=== PATIENT | female | born 1975 | race Caucasian/White ===

== ENCOUNTER 2019-02-14 09:31 | Outpatient (CLI) | payer OTHER, SELFPAY ==
--- NOTE | 2019-02-14 09:57 | USCV_ITS ---
Denise Clifton Age: 43 Gender: F : 1975 Exam Date: 02/14/2019 10:12 Ordering Phys: Justino Timmons MD ([email or web address]) Technologist: Ayde Harris [place]am [place] [facility] [place]: CONGENTIAL HEART VALVE ABN BP: / HR: 69 Rhythm: Sinus Technical Quality: Adequate MEASUREMENTS (Male / Female) Normal Values 2D ECHO LV Diastolic Diameter PLAX 5.5 cm 4.2 - 5.9 / 3.9 - 5.3 cm LV Systolic Diameter PLAX 4.1 cm LV Chamber Size 4.0 cm IVS Diastolic Thickness 1.3 cm 0.6 - 1.0 / 0.6 - 0.9 cm IVS Systolic Thickness 1.7 cm LVPW Diastolic Thickness 1.4 cm 0.6 - 1.0 / 0.6 - 0.9 cm LVPW Systolic Thickness 1.9 cm RV Chamber Size 2.8 cm LVOT Diameter 2.0 cm LV Ejection Fraction 2D Teich 50.3 % LV Ejection Fraction MOD 2C 45.7 % LV Ejection Fraction 2C AL 46.0 % LA Diameter 4.6 cm LA Width 2.8 cm LA Height 4.4 cm RA Width 2.7 cm RA Height 4.0 cm M-MODE LV Diastolic Diameter MM 6.2 cm 4.2 - 5.9 / 3.9 - 5.3 cm LV Systolic Diameter MM 4.4 cm LV Ejection Fraction MM Teich 55.4 % IVS Diastolic Thickness MM 1.6 cm 0.6 - 1.0 / 0.6 - 0.9 cm IVS Systolic Thickness MM 1.6 cm LVPW Diastolic Thickness MM 1.3 cm 0.6 - 1.0 / 0.6 - 0.9 cm LVPW Systolic Thickness MM 1.5 cm RV Diastolic Diameter MM 2.2 cm Aortic Annulus Diameter 3.3 cm LA Ao Ratio MM 1.4 MV E Point Septal Separation 0.8 cm DOPPLER AV Peak Velocity 171.0 cm/s LVOT Peak Velocity 83.0 cm/s AV Area Cont Eq vti 2.3 cm squared AV Area Cont Eq pk 1.6 cm squared MV Area PHT 3.6 cm squared Mitral E to A Ratio 1.5 MV E' Velocity 81.0 cm/s TR Peak Velocity 233.9 cm/s TR Peak Gradient 21.9 mmHg TR Mean Velocity 154.0 cm/s TR Mean Gradient 11.0 mmHg TR Velocity Time Integral 52.0 cm TV Peak E Velocity 60.0 cm/s Right Atrial Pressure 5.0 mmHg Pulmonary Artery Systolic Pressu 26.9 mmHg PV Peak Velocity 63.0 cm/s RV Acceleration Time 0.2 s RV Ejection Time 0.3 s RV AcT/ET 0.6 FINDINGS Left Ventricle Normal left ventricular size and ejection n fraction 55%. No gross wall motion normalities noted. Apical lateral segment was found to have some relative hypokinesia Right Ventricle Possibly of normal size ejection fraction. Right Atrium The right atrium is normal in size. Left Atrium The left atrium is normal in size. Mitral Valve Thickened mitral valve. Aortic Valve Thickened aortic valve. Moderate aortic regurgitation with a pressure half-time of 469 ms Aortic leaflets could not be visualized well Tricuspid Valve No gross abnormalities noted Pulmonic Valve Not visualized well Pericardium Normal pericardium without effusion. Aorta Normal ascending aorta dimension. CONCLUSIONS Normal left ventricular size and ejection n fraction 55%. No gross wall motion abnormalities The left atrium is normal in size. Thickened mitral valve. Thickened aortic valve. Moderate aortic regurgitation with a pressure half-time of 469 ms There is no pericardial effusion. There are no intracardiac masses. Compared to his previous study from 07/23/2017, there may not be a significant change Dr Justino Timmons MD FACC (Electronically Signed) Final Date: 15 February 2019 15:24 S
== END 2019-02-14 09:32 | disposition home or self-care (01) ==
LOC: RAD 09:33
PROVIDERS: Family Provider Family Medicine; PCP Family Medicine; Visit Provider Internal Medicine Cardiovascular Disease
DX: Q24.8 Other specified congenital malformations of heart (principal); I08.0 Rheumatic disorders of both mitral and aortic valves
CPT/HCPCS: 93306

== ENCOUNTER → 2019-08-29 11:39 | Outpatient (BNVA) | payer OTHER, SELFPAY | PROVIDERS: Family Provider Family Medicine; PCP Family Medicine; Visit Provider Obstetrics & Gynecology | DX: Z12.4 Encounter for screening for malignant neoplasm of cervix (principal) | CPT/HCPCS: 88175 ==

== ENCOUNTER → 2020-05-14 11:43 | Outpatient (BNVA) | payer OTHER, SELFPAY | PROVIDERS: Family Provider Family Medicine; PCP Family Medicine Adult Medicine; Visit Provider Family Medicine Adult Medicine | DX: Z00.00 Encounter for general adult medical examination without abnormal findings (principal); E66.01 Morbid (severe) obesity due to excess calories; I35.1 Nonrheumatic aortic (valve) insufficiency; K76.0 Fatty (change of) liver, not elsewhere classified; E78.2 Mixed hyperlipidemia; I49.9 Cardiac arrhythmia, unspecified; E11.65 Type 2 diabetes mellitus with hyperglycemia; I10 Essential (primary) hypertension; F41.8 Other specified anxiety disorders; J45.909 Unspecified asthma, uncomplicated | CPT/HCPCS: 80053; 80061; 83036; 84443; 85025 ==

== ENCOUNTER → 2020-09-28 08:20 | Outpatient (BNVA) | payer OTHER, SELFPAY | PROVIDERS: Family Provider Family Medicine; PCP Family Medicine Adult Medicine; Visit Provider Family Medicine Adult Medicine | DX: E11.65 Type 2 diabetes mellitus with hyperglycemia (principal); E66.01 Morbid (severe) obesity due to excess calories; E78.2 Mixed hyperlipidemia; I35.1 Nonrheumatic aortic (valve) insufficiency; K76.0 Fatty (change of) liver, not elsewhere classified; Z00.00 Encounter for general adult medical examination without abnormal findings | CPT/HCPCS: 80053; 80061; 83036; 83721 ==

== ENCOUNTER → 2021-02-15 15:09 | Outpatient (BNVA) | payer OTHER, SELFPAY | PROVIDERS: Family Provider Family Medicine; PCP Family Medicine Adult Medicine; Visit Provider Family Medicine Adult Medicine | DX: E11.65 Type 2 diabetes mellitus with hyperglycemia (principal); I10 Essential (primary) hypertension | CPT/HCPCS: 80053; 83036 ==

== ENCOUNTER → 2021-06-13 15:18 | Outpatient (BNVA) | payer OTHER, SELFPAY | PROVIDERS: Family Provider Family Medicine; PCP Family Medicine Adult Medicine; Visit Provider Obstetrics & Gynecology | DX: N92.1 Excessive and frequent menstruation with irregular cycle (principal) | CPT/HCPCS: 83001; 84146; 84443; 84702; 85025 ==

== ENCOUNTER 2021-08-03 13:11 | Outpatient (CLI) | payer BC, SELFPAY ==
--- NOTE | 2021-08-03 13:45 | US_ITS ---
WS: [id number] TRANSVAGINAL PELVIC ULTRASOUND HISTORY: N92.1 - Excessive and frequent menstruation with irregular menses. COMPARISON: None available. Uterus: 9.5 cm x 6.5 cm x 5.3 cm. Mildly enlarged anteverted uterus. Coarse echotexture throughout th e myometrium. No mass identified. Endometrium: 1.9 cm. Enlarged endometrium is mildly heterogeneous. No increased vascularity. Partiall y obliterated junctional zone. Right ovary: 4.3 cm x 3.8 cm x 2.3 cm. Mildly enlarged RIGHT ovary. There is a mildly complex cyst wi th associated with the RIGHT ovary measuring 1.8 x 1.7 x 1.7 cm. Normal vascularity within the ovary. Left ovary: Not visualized. No free fluid in the cul-de-sac. US/US transvaginal [id number] IMPRESSION: 1. Mild uterine enlargement with coarse echotexture throughout. No fibroid. 2. Mildly enlarged, heterogeneous endometrium. No discrete mass or increased v ascularity noted within the endometrium. Due to the large size and heterogeneit y biopsy should be considered. There is also mild loss of the junctional zone.
== END 2021-08-03 13:12 | disposition home or self-care (01) ==
PROVIDERS: Family Provider Family Medicine; PCP Family Medicine Adult Medicine; Visit Provider Obstetrics & Gynecology
DX: N92.1 Excessive and frequent menstruation with irregular cycle (principal); N85.2 Hypertrophy of uterus; N85.00 Endometrial hyperplasia, unspecified
CPT/HCPCS: 76830

== ENCOUNTER 2021-10-12 12:02 | Day surgery (SDC) | payer BC, SELFPAY ==
[2021-10-11 12:19] VITALS: BMI 30.9
[2021-10-12] VITALS (7 sets, daily range): BP systolic 100–165; BP diastolic 55–93; PULSE 80–90; RESP 16–22; TEMP 36.1–37.1; O2SAT 90–97
[2021-10-12 12:38] LABS: Glucose Point of Care 151 mg/dL (70-110)
[2021-10-12] MEDS: scopolamine 1.5 Patch 1 PATCH TRANSDERMA (12:41)
[2021-10-12] MEDS: sodium chloride 0.9% 500 ML IV (12:43)
[2021-10-12 12:50] LABS: OR HCG Qualitative Urine Negative (Negative)
[2021-10-12 12:54] LABS: Basophils # 0.1 10^3/uL (0.0-0.1); Basophils % 0.8 %; Eosinophils # 0.2 10^3/uL (0.0-0.8); Eosinophils % 1.9 %; Hematocrit 39.9 % (37.0-47.0); Hemoglobin 13.7 g/dL (11.5-15.3); Lymphocytes # 2.9 10^3/uL (0.8-4.8); Lymphocytes % 30.9 %; Mean Corpuscular HGB Conc 34.3 g/dL (30.0-36.0); Mean Corpuscular Hemoglobin 31.4 pg (28.0-34.0); Mean Corpuscular Volume 91.5 fl (81-99); Mean Platelet Volume 11.7 fL (7.4-10.4); Monocytes # 0.8 10^3/uL (0.2-0.9); Monocytes % 8.8 %; Neutrophils # 5.42 10^3/uL (1.8-7.7); Neutrophils % 57.2 %; Nucleated Red Blood Cells % 0 %; Platelet Count 229 10^3/cmm (130-400); Red Blood Count 4.36 10^6/uL (4.1-5.3); Red Cell Distribution Width 13.5 % (12.1-15.1); White Blood Count 9.5 10^3/uL (4.0-10.0)
[2021-10-12 13:20] LABS: Add Urine Microscopic? YES; Bilirubin Urine Neg (Negative); Blood Urine Trace (Negative); Glucose Urine UA Norm (Normal); Ketones Urine 1+ (Negative); Leukocyte Esterase Urine 1+ (Negative); Nitrate Urine Negative (Negative); Protein Urine Neg (Negative); RBC Urine 0-4 /hpf (0-2); Urine Appearance Hazy (CLEAR); Urine Color Yellow (Yellow); Urobilinogen Urine Norm (Negative); WBC Urine 0-4 /hpf (0-5); pH Urine 6 (5-7)
[2021-10-12 13:21] LABS: Add Urine Culture? Yes; Bacteria Urine 1+ /hpf
--- NOTE | 2021-10-12 13:45 | W.PM.OPSUD ---
Surgery/Procedure H&P Update DATE OF PROCEDURE: October 12, 2021 DATE H&P PERFORMED: 10/11/21 H&P UPDATE INFORMATION: I have reviewed H&P completed within last 30 days, I have examined patient prior to procedure and No changes to prior documentation PREOP DIAGNOSIS: Abnormal uterine bleeding PLANNED PROCEDURE: Operation Date: 10/12/21 11:50 Proposed Procedures p Hysteroscopy, dilation adn curettage with Myosure 93752, 83907, 46518, Endometrial ablation via Novasure 76541,N92.1(Not Applicable) - Clemente Ortega MD s Dilation And Curettage (D&C)(Not Applicable) - Clemente Ortega MD s Hysteroscopy w/ Ablation w/ Novasure(Not Applicable) - Clemente Ortega MD
[2021-10-12] MEDS: midazolam 1 mg/mL INJ 2 mL 2 MG IVP (14:01)
[2021-10-12] MEDS: sodium chloride 0.9% 1,000 ML 30 ML IV (14:03)
[2021-10-12] MEDS: ceFAZolin 2,000 MG in sodium chloride 0.9% (plus) 50 ML 100 MG IV (14:04)
--- NOTE | 2021-10-12 14:54 | PM.OP ---
Operative Report Date of procedure: October 12, 2021 Pre-op diagnosis: Preop Diagnosis Abnormal uterine bleeding Post-op diagnosis: Same as above Procedure done: Hysteroscopy Dilation and curettage via MyoSure. Endometrial ablation via NovaSure Surgeon: Clemente Ortega MD Estimated blood loss (mL): 5 IV fluids (mL): 300 Complications: None Procedure: After informed consent, the risks included but were not limited to bleeding, infection, injury to internal organs. The patient was counseled on a possible laparotomy and on the potential need for hysterectomy. The patient expressed understanding of the risks involved, all questions were answered, and the patient consented to the procedure. The patient was taken to the operating room where general anesthesia was administered. She was placed in the dorsal lithotomy position and prepped and draped in sterile fashion. A time out procedure was performed. The patient was examined under anesthesia and found to have a normal uterus with normal adnexa. A sterile weight speculum was placed in the vagina. The uterus was then gently sounded to 7 cm, and the cervix was dilated. The 0 degrees MyoSure hysteroscope was advanced gently to the uterine fundus while visualizing the monitor. Survey of the uterine cavity showed: Proliferative endometrium, the fundus shows atrophic in the mid; left ostium was visualized, and lateral wall with proliferative endometrium; right ostium visualized, and lateral wall with proliferative endometrium; anterior and posterior ospina are with proliferative endometrium; endocervical canal is normal. The MyoSure device was advanced and the direct visualization the endometrium was morcellated without complication. At the end of morcellation the fluid deficit was 300 mL and was estimated at approximately 200 mL were on the floor. There was minimal bleeding noted and the tenaculum removed with goad hemostasis noted. Then the sterile NovaSure? Disposable Device package was opened, connected and tested per instructions. It was found to be working properly. The device?s array is completely enclosed by the external sheath and the WIDTH dial reads approximately 0.5 cm. The appropriate cavity length settings was set 4.5 cm. Adjust and lock the cavity length setting feature on the Disposable Device to the value obtained. The Cervical Collar was fully retracted to its proximal position. Confirmed that the cervix was dilated to 8.0 mm. While maintaining a slight traction on the tenaculum to minimize the angle of the uterus. In-line with the axis of the uterus the Disposable Device was inserted transcervically into the uterine cavity and advance the device until the distal end of the sheath touched the fundus. The handles were slowly squeezed up to the point of increased resistance without locking it. The WIDTH dial read 2.5 cm. The Disposable Device handles were slowly squeezed together while gently moving the Disposable Device -0.5 cm to and from the fundus and rotating the handle of the Disposable Device 45? counterclockwise from the vertical plane and 45? clockwise from the vertical plane until the handles locked and confirmed the with dial read greater than 2.5 cm. The Disposable Device was gently moved using anterior, posterior and lateral movements. The Disposable Device was slightly pulled back until the WIDTH dial reading reduced by approximately 0.2-0.5 cm. While holding the tenaculum, the Disposable Device was advance to the fundus, maintaining slight forward pressure. The WIDTH dial read to the previous measurement. The Cervical Collar was slide forward until it forms a seal against the external cervical os. The value indicated on the width dial into the [employer]? RF Controller. In Automatic Mode the Cavity Integrity Assessment (GENIE) procedure by stepping on the foot switch once was began. The cavity integrity assessment LED signaled the test has passed. The ablation cycle started was after the successful completion of the Cavity Integrity Assessment test. Termination of the ablation was automatic at 37 seconds. The Cervical Collar was slide it to its proximal position. The Disposable Device was unlock, holding the front piping designer stationary and pulling the rear handles backwards until the Closed Array indicator reads closed the Disposable Device was withdrawn from the uterine cavity. A hysteroscopy was performed post ablation to confirm therapy it was noted that endometrial cavity had been thoroughly ablated. Prior to this, a curettage was performed with the Myosure device, and endometrial curettings were also collected. Patient did have an endometrial biopsy in the office as well, which was negative. The hysteroscope and the tenaculum were removed with goad hemostasis noted. The patient tolerated the procedure well. The patient was taken to the recovery area in stable condition.
[2021-10-12 15:35] LABS: Alanine Aminotransferase 30 U/L (0-33); Albumin Level 4.4 g/dL (3.5-5.2); Alkaline Phosphatase 65 U/L (35-105); Anion Gap 17.3 (5-19); Aspartate Amino Transferase 31 U/L (0-32); Blood Urea Nitrogen 8 mg/dL (6-20); Calcium 8.8 mg/dL (8.5-10.5); Carbon Dioxide 21 mmol/L (22-29); Chloride 103 mmol/L (98-107); Globulin 2.2 g/dL (1.3-4.6); Glomerular Filtration Rate 173.4 mL/min (90-130); Glucose 124 mg/dL (65-115); Osmolality Calculated 284 mOsm/kg (285-295); Potassium 4.3 mmol/L (3.5-5.1); Sodium 137 mmol/L (136-145); Total Bilirubin 0.3 mg/dL (0.15-1.2); Total Protein 6.6 g/dL (6.6-8.7)
[2021-10-12] MEDS: ibuprofen 800 mg tablet PO (15:42)
--- NOTE | 2021-10-12 15:46 | ANES.PREANE2 ---
Pre-Anesthetic Assessment Height/Weight: Height 1.6 m Weight 79.379 kg Temp Pulse Resp BP Pulse Ox O2 Del Method O2 Flow Rate 98.7 F 80 18 111/55 94 6 10/12/21 15:32 10/12/21 15:32 10/12/21 15:32 10/12/21 15:32 10/12/21 15:32 10/12/21 15:32 10/12/21 15:05 Preop Diagnosis: Abnormal uterine bleeding Operation Date: 10/12/21 11:50 Proposed Procedures p Hysteroscopy, dilation adn curettage with Myosure 93839, 81402, 62711, Endometrial ablation via Novasure 65740,N92.1(Not Applicable) - Clemente Ortega MD s Dilation And Curettage (D&C)(Not Applicable) - Clemente Ortega MD s Hysteroscopy w/ Ablation w/ Novasure(Not Applicable) - Clemente Ortega MD Familial anesthetic complications: none Last intake: Intake Last Liquid Date 10/12/21 Last Liquid Time 08:00 Last Solid Date 10/11/21 Last Solid Time 18:00 Social No alcohol and No tobacco Exam alert, oriented x 3, clear to auscultation bilaterally and regular rate & rhythm Airway Submandibular: within normal limits Cervical ROM: within normal limits Mallampati: Class II Dentition: false CV/HEM Congestive Heart Failure, Hypertension and Murmur (AR--quadcusp aortic valve) GI Gastroesophageal Reflux Disease Metabolic Diabetes Mellitus, Hyperlipidemia and Morbid Obesity Neuropsych Anxiety and Depression Anesthetic Plan ASA status: 3 Anesthesia: General Medications/Allergies Home Medications Medication Instructions Recorded Confirmed Last Taken Type OneTouch Ultra Blue Test Strip #100 ea 05/18/20 10/11/21 Unknown Rx (blood sugar diagnostic) OneTouch Ultra2 Meter #1 ea 05/18/20 10/11/21 Unknown Rx (blood-glucose meter) amitriptyline 25 mg tablet 25 mg PO DAILY #90 tabs 02/15/21 10/12/21 10/12/21 Rx aspirin 81 mg tablet,delayed 81 mg PO ONCE #90 tabs 02/15/21 10/12/21 10/11/21 Rx release carvedilol phosphate 80 mg 80 mg PO DAILY heart and BP #90 01/11/22 09/07/22 09/07/22 Rx capsule,[id number] multiphase caps lancets 33 gauge (Shanel Delica #100 ea 02/15/21 10/11/21 Unknown Rx Lancets) lisinopril 40 mg tablet 40 mg PO DAILY blood pressure & 02/15/21 10/12/21 10/11/21 Rx kidney #90 tabs magnesium L-lactate 84 mg 252 mg PO BID Magnesium supplement 02/15/21 10/12/21 10/11/21 Rx tablet,extended release #540 tabs metformin 1,000 mg tablet 1,000 mg PO BID glucose control 02/15/21 10/12/21 10/11/21 Rx #180 tabs niacin 750 mg tablet,extended 750 mg PO DAILY increase HDL & 02/15/21 10/12/21 10/11/21 Rx release lower cholesterol 90 days #90 tabs sertraline 100 mg tablet 150 mg PO DAILY #180 tabs 02/15/21 10/12/21 10/11/21 Rx glyburide 5 mg tablet 2.5 mg PO DAILY glucose control 02/16/21 10/12/21 10/11/21 Rx #90 tabs albuterol sulfate 90 mcg/actuation 2 puff inhalation Q6H PRN 06/22/21 10/12/21 Unknown Rx aerosol inhaler shortness of breath or wheezing #17 grams rosuvastatin 10 mg tablet (Crestor) 10 mg PO DAILY #90 tabs 08/31/21 10/12/21 10/11/21 Rx acetaminophen 325 mg capsule 325 mg PO Q4H PRN fever or pain 10/12/21 Unknown Rx #60 caps ibuprofen 800 mg tablet 800 mg PO TID PRN pain #60 tabs 10/12/21 Unknown Rx Allergies Allergy/AdvReac Type Severity Reaction Status Date / Time Opioids - Morphine Analogues Allergy Severe ALGY-Anaphy Verified 10/12/21 12:19 laxis Current Medications Generic Name Dose Route Start Last Admin Trade Name Freq PRN Reason Stop Dose Admin Sodium Chloride 1,000 mls @ 30 mls/hr 10/12/21 12:15 10/12/21 15:19 Sodium Chloride 0.9% IV 10/13/21 12:14 Infused .Q24H JADA Infusion Midazolam HCl 2 mg 10/12/21 12:06 10/12/21 14:01 Midazolam 1 Mg/Ml Inj 2 Ml IVP 2 mg Q5M PRN Administration Preop Anxiety [facility] Anesthesia Medical History Anxiety about health Diverticulosis Encounter for wellness examination in adult Environmental and seasonal allergies Fatty liver disease, nonalcoholic Gastroesophageal reflux Hyperlipidemia Hypertension Morbid obesity with body mass index (BMI) of 40.0 or higher Nonrheumatic aortic valve regurgitation Skin lesions, generalized Type 2 diabetes mellitus UTI (urinary tract infection) Ventricular arrhythmia Surgical History History of 3 sections 1995, 1996,2000 History of bilateral tubal ligation (~2000) during section History of laparoscopic cholecystectomy Family History Father Hypertension Heart disease Bleeding disorder Clotting disorder CAD (coronary artery disease) Diabetes Mother Stroke Thyroid disease Bleeding disorder Clotting disorder Cancer Lung disease Brother Suicide Denies family history of Dementia Chronic kidney disease (CKD) Anesthesia complication Social History Smoking and tobacco status: current every day smoker cigarettes Packs smoked per day: 0.25 Years cigarettes smoked: 15 Number of children: 3 Number of grandchildren: 3 Kinsey/Denominational: None Data Anesthesia : 10/12/21 12:28 10/12/21 13:55 Short CBC 10/12/21 Range/Units 12:28 WBC 9.5 (4.0-10.0) 10^3/uL Hgb 13.7 (11.5-15.3) g/dL Hct 39.9 (37.0-47.0) % MCV 91.5 (81-99) fl Plt Count 229 (130-400) 10^3/cmm Neut % (Auto) 57.2 % Neut # (Auto) 5.42 (1.8-7.7) 10^3/uL BMP 10/12/21 10/12/21 12:28 13:55 Sodium Cancelled 137 Potassium Cancelled 4.3 Chloride Cancelled 103 Carbon Dioxide Cancelled 21 L BUN Cancelled 8 Creatinine Cancelled 0.4 L Glucose Cancelled 124 H Calcium Cancelled 8.8 Liver Function 10/12/21 10/12/21 Range/Units 12:28 13:55 Total Bilirubin Cancelled 0.3 AST Cancelled 31 ALT Cancelled 30 Alkaline Phosphatase Cancelled 65 Albumin Cancelled 4.4 Urine 10/12/21 Range/Units 12:15 Urine Color Yellow (Yellow) Urine Appearance Hazy A (CLEAR) Urine pH 6 (5-7) Ur Specific [place] 1.010 (1.005-1.030) Urine Protein Neg (Negative) Urine Glucose (UA) Norm (Normal) Urine Ketones 1+ H (Negative) Urine Nitrate Negative (Negative) Urine Bilirubin Neg (Negative) Ur Leukocyte Esterase 1+ H (Negative) Urine RBC 0-4 H (0-2) /hpf Urine WBC 0-4 H (0-5) /hpf Blood Bank 10/12/21 12:28 Blood Type O Negative Rho(D) Type Negative Antibody Screen Negative Cardiac Studies: Echocardiogram Ultrasound 02/14/19 Cardiac Event Monitor 05/25/20
--- NOTE | 2021-10-12 15:55 | ANE.PACU2 ---
Inpatient post-anesthesia follow up: Airway intact: Yes Vital signs: Temperature 98.7 F Pulse Rate 80 Respiratory Rate 18 Blood Pressure 111/55 Pulse Oximetry 94 Oxygen Delivery Me thod Room Air Oxygen Flow Rate 6 Fraction of Inspir ed Oxygen Hydration adequate: Yes Nausea and vomiting: No Pain level: 2 Mental status: Baseline
== END 2021-10-12 16:00 | disposition home or self-care (01) ==
PROVIDERS: PCP Family Medicine Adult Medicine; Visit Provider Obstetrics & Gynecology
PROC: 0UDB8ZZ Extraction of Endometrium, Via Natural or Artificial Opening Endoscopic (ICD-10-PCS; CPT 58558; principal; 2021-10-12 11:50)
PROC: (CPT 58120; 2021-10-12 11:50)
PROC: 0U598ZZ Destruction of Uterus, Via Natural or Artificial Opening Endoscopic (ICD-10-PCS; CPT 58563; 2021-10-12 11:50)
DX: N84.0 Polyp of corpus uteri (principal); I11.0 Hypertensive heart disease with heart failure; I50.9 Heart failure, unspecified; K21.9 Gastro-esophageal reflux disease without esophagitis; E11.9 Type 2 diabetes mellitus without complications; E78.5 Hyperlipidemia, unspecified; E66.01 Morbid (severe) obesity due to excess calories; Z68.31 Body mass index [BMI] 31.0-31.9, adult; Z88.5 Allergy status to narcotic agent
CPT/HCPCS: 58558; 36416; 80053; 81001; 81025; 82962; 84703; 85025; 86850; 86900; 87086; 88305; J2250; J3010; J7030; J7040

== ENCOUNTER 2022-02-03 14:32 | Outpatient (CLI) | payer BC, SELFPAY ==
--- NOTE | 2022-02-03 16:00 | CT_ITS ---
WS: [id number] CT CHEST TECHNIQUE: Noncontrast CT of the chest with coronal and sagittal reformatted images. CLINICAL INFORMATION: Swallowed foreign object COMPARISON: None. DLP: 739.[address] scans at [facility] use at least one of these dose optimization techniques: automated e xposure control; mA and/or kV adjustment per patient size (includes targeted exams where dose is matc hed to clinical indication); or iterative reconstruction. FINDINGS: 6 mm ovoid nodule within the RIGHT mid lower lobe bronchus best seen on the coronal imaging. Series 6 image 36. Associated subsegmental atelectasis in the RIGHT lower lobe posteriorly. This presumably c orresponds to reported aspirated foreign object. No other endobronchial lesions. Lungs are otherwise well aerated. Volume loss RIGHT lower lobe. Ivelisse l caliber thoracic aorta. No mediastinal or hilar lymphadenopathy. No axillary lymphadenopathy. Hepat omegaly with diffuse fatty infiltration liver. Cholecystectomy. Adrenal glands are normal. CT/CT chest wo con [id number] IMPRESSION: 1. 6 mm endobronchial lesion in the RIGHT lower lobe bronchus likely represent s recently aspirated foreign object. This is best seen on coronal reformatted. Series 6 image 36. Associated subsegmental atelectasis involving the RIGHT lowe r lobe posteriorly. Mild volume loss RIGHT lower lobe. 2. No other endobronchial lesions visualized. 3. Lungs are otherwise well aerated. 4. Hepatomegaly diffuse fatty infiltration Notified Dank Benítez MD at 02/03/2022 4:48 PM.
== END 2022-02-03 14:33 | disposition home or self-care (01) ==
PROVIDERS: PCP Family Medicine Adult Medicine; Visit Provider Family Medicine Adult Medicine
DX: T17.908A Unspecified foreign body in respiratory tract, part unspecified causing other injury, initial encounter (principal); R16.0 Hepatomegaly, not elsewhere classified; K76.0 Fatty (change of) liver, not elsewhere classified; J98.11 Atelectasis; X58.XXXA Exposure to other specified factors, initial encounter
CPT/HCPCS: 71250

== ENCOUNTER 2022-09-26 10:02 | Outpatient (CLI) | payer BC, SELFPAY ==
--- NOTE | 2022-09-26 10:15 | MR_ITS ---
WS: [id number] MRI PELVIS WITH AND WITHOUT CONTRAST. COMPARISON: Transvaginal pelvic ultrasound 08/03/2021. As per history there are outside imaging studie s which described a uterine mass. These are not available for review at the time of this interpretati on. If these studies become available for review I would be happy to review and provide an addendum. Multiplanar, multisequence imaging is performed with and without contrast. Postcontrast imaging Multi Gordy 20 mL IV. Uterus is enlarged extending over a length of 13.4 cm. AP diameter 7.3 cm and transverse diameter 5.7 cm. Contour of the uterus is otherwise normal. The myometrium appears normal. Abnormal appearance of the central endometrial canal extending into the cervix. There is an hourglass shaped configuration of the endometrial canal. More inferior hourglass configuration is splaying of the cervical ospina. On the T1 sequences the central components along the endometrial canal are increa sed signal and very low signal on the T1 sequences. This is consistent and suggestive of blood produc ts. Signal changes are contiguous throughout the hourglass configuration. There is a slightly greater bulbous appearance along the lower uterine segment towards the cervical canal but does not appear to be a discrete mass. On the postcontrast imaging there is no appreciable enhancement. There is no enh ancement pattern to suggest a fibroid extending into the endometrium. Diameter of the endometrial component is 3.6 cm. Diameter of the cervical canal is 4.3 cm. Both ovaries are identified. Ovaries are normal in size. LEFT ovarian follicle with a maximum diamete r of 2.4 cm. No solid enhancing mass within either ovary. No free fluid in the pelvis. IMPRESSION: 1. Findings are most suggestive of a hematometra. Endometrial and cervical canals are distended by bl ood products. No mass identified. Occult mass causing the obstruction or stenosis possible etiologies to considered. 2. No fibroid identified. 3. No ovarian mass. Notified Clemente Ortega MD at 09/26/2022 2:32 PM. Message LEFT for Jordan that the report was comple dean.
[2022-09-26] MEDS: gadobenate dimeglumine 20 mL vial IV (11:15)
== END 2022-09-26 10:03 | disposition home or self-care (01) ==
PROVIDERS: PCP Family Medicine Adult Medicine; Visit Provider Obstetrics & Gynecology
DX: N85.8 Other specified noninflammatory disorders of uterus (principal); R10.2 Pelvic and perineal pain
CPT/HCPCS: 72197; A9577

== ENCOUNTER 2022-09-27 11:07 | Inpatient (IN) | payer BC, SELFPAY ==
[2022-09-27] VITALS (17 sets, daily range): BP systolic 115–147; BP diastolic 66–83; PULSE 73–83; RESP 15–18; TEMP 36.2–36.7; O2SAT 90–98; BMI 41.1
[2022-09-27] MEDS: sodium chloride 0.9% 500 ML IV (06:52)
[2022-09-27] MEDS: sodium chloride 0.9% 1,000 ML 30 ML IV (06:53)
[2022-09-27] MEDS: enoxaparin 30 mg/0.3 mL Syringe SUBCUT (06:54)
[2022-09-27] MEDS: scopolamine 1.5 Patch 1 PATCH TRANSDERMA (06:54)
[2022-09-27] MEDS: ondansetron 2 mg/ML SDV 2 mL 4 MG IVP ×2 (07:02→12:03)
[2022-09-27] MEDS: HYDROmorphone 1 mg/mL INJ 1 mL 0.5 MG IVP (07:03)
--- NOTE | 2022-09-27 07:03 | ANES.PREANE2 ---
Pre-Anesthetic Assessment Height/Weight: Height 1.63 m Weight 108.862 kg Temp Pulse Resp BP Pulse Ox O2 Del Method 97.2 F L 73 17 134/66 95 Room Air 09/27/22 06:24 09/27/22 06:24 09/27/22 06:24 09/27/22 06:24 09/27/22 06:24 09/27/22 06:24 Operation Date: 09/27/22 07:00 Proposed Procedures p Total Abdominal Hysterectomy with BSO 88721,R10.2,N85.8(Not Applicable) - Clemente Ortega MD Familial anesthetic complications: none Was Beta Qing taken within 24 hours: Yes Was Clonidine taken within 24 hours: N/A Social Tobacco and No alcohol Exam alert, oriented x 3 and regular rate & rhythm Airway Submandibular: within normal limits Cervical ROM: within normal limits Mallampati: Class II Dentition: false Pulmonary Chronic Obstructive Pulmonary Disease CV/HEM Congestive Heart Failure and Hypertension Metabolic Diabetes Mellitus, Hyperlipidemia and Morbid Obesity Neuropsych Anxiety and Depression Anesthetic Plan ASA status: 3 Anesthesia: General Medications/Allergies Home Medications Medication Instructions Recorded Confirmed Last Taken Type OneTouch Ultra Blue Test Strip #100 ea 05/18/20 02/03/22 Unknown Rx (blood sugar diagnostic) OneTouch Ultra2 Meter #1 ea 05/18/20 02/03/22 Unknown Rx (blood-glucose meter) aspirin 81 mg tablet,delayed 81 mg PO ONCE #90 tabs 02/15/21 09/27/22 09/25/22 13:00 Rx release magnesium L-lactate 84 mg 252 mg PO BID Magnesium supplement 02/15/21 09/27/22 09/26/22 13:00 Rx tablet,extended release #540 tabs rosuvastatin 10 mg tablet (Crestor) 10 mg PO DAILY #90 tabs 11/14/21 09/27/22 09/26/22 13:30 Rx albuterol sulfate 90 mcg/actuation 2 puff inhalation Q6H PRN 02/03/22 09/27/22 Unknown Rx aerosol inhaler shortness of breath or wheezing #54 grams amitriptyline 25 mg tablet 25 mg PO DAILY #90 tabs 02/13/22 09/27/22 09/26/22 13:00 Rx lisinopril 40 mg tablet 40 mg PO DAILY blood pressure & 02/13/22 09/27/2223 13:00 Rx kidney #90 tabs metformin 1,000 mg tablet 1,000 mg PO BID glucose control 02/13/22 09/27/22 09/25/22 Rx #180 tabs niacin 750 mg tablet,extended 750 mg PO DAILY increase HDL & 02/13/22 09/27/22 09/26/22 13:00 Rx release lower cholesterol 90 days #90 tabs lancets 33 gauge (OneTouch Delica #100 ea 03/28/22 Unknown Rx Lancets) glyburide 5 mg tablet 2.5 mg PO DAILY glucose control 05/10/22 09/27/22 09/25/22 Rx #90 tabs hydroxyzine HCl 50 mg tablet 100 mg PO BID PRN anxiety/panic 07/11/22 09/27/22 09/26/22 22:00 Rx attacks #120 tabs sertraline 100 mg tablet 200 mg PO DAILY 90 days #180 tabs 08/07/22 09/27/22 09/26/22 22:00 Rx carvedilol phosphate 80 mg 80 mg PO DAILY heart and BP #90 09/20/22 09/27/22 09/26/22 13:00 Rx capsule,[id number] multiphase caps hydrocodone 5 mg-acetaminophen 325 1 tab PO Q4H PRN pain 10 days #30 09/25/22 09/27/22 Unknown Rx mg tablet tabs hydrocodone 5 mg-acetaminophen 325 1 tab PO Q6H PRN Pain 09/25/22 09/27/22 09/27/22 03:30 History mg tablet ondansetron HCl 4 mg tablet 4 mg PO Q6H 09/25/22 09/27/22 09/27/22 03:30 History Allergies Allergy/AdvReac Type Severity Reaction Status Date / Time Opioids - Morphine Analogues Allergy Severe ALGY-Anaphy Verified 09/27/22 06:14 laxis Current Medications Generic Name Dose Route Start Last Admin Trade Name Freq PRN Reason Stop Dose Admin Hydromorphone HCl 0.5 mg 09/27/22 06:01 09/27/22 07:03 Hydromorphone 1 Mg/Ml Inj 1 Ml IVP 0.5 mg ONCE PRN Administration For preop pain/anxiety Sodium Chloride 1,000 mls @ 30 mls/hr 09/27/22 06:15 08/23/23 06:53 Sodium Chloride 0.9% IV 09/28/22 06:14 30 mls/hr .Q24H JADA Administration Ondansetron HCl 4 mg 09/27/22 06:01 09/27/22 07:02 Ondansetron 2 Mg/Ml Sdv 2 Ml IVP 4 mg ONCE PRN Administration NAUSEA AND VOMITING PFSH Anesthesia Medical History Aspiration into airway Diverticulosis Encounter for wellness examination in adult Environmental and seasonal allergies Fatty liver disease, nonalcoholic Generalized anxiety disorder with panic attacks Hyperlipidemia Hypertension Morbid obesity with body mass index (BMI) of 40.0 or higher Nonrheumatic aortic valve regurgitation Osteoarthritis Skin lesions, generalized Status post hysteroscopy 10/12/2021: hysteroscopy, D&C via MyoSure, ednometrial ablation via NovaSure performed by Dr. Ortega at [facility] Type 2 diabetes mellitus Uterine mass 6.2x5.2x4.[address] uterine mass found on CT 09/22/2022 thought to be leiomyoma UTI (urinary tract infection) Ventricular arrhythmia Surgical History History of 3 sections 1995, 1996,2000 History of bilateral tubal ligation (~2000) during section History of laparoscopic cholecystectomy Family History Father Hypertension Heart disease Bleeding disorder Clotting disorder CAD (coronary artery disease) Diabetes Mother Stroke Thyroid disease Bleeding disorder Clotting disorder Cancer Lung disease Brother Suicide Denies family history of Dementia Chronic kidney disease (CKD) Anesthesia complication Social History Smoking and tobacco status: current some day smoker cigarettes Alcohol intake: never Desire information about alcohol rehabilitation?: No Substance/Drug Use: never Desire information about substance/drug rehabilitation?: No Lives independently: Yes Number of children: 3 Number of grandchildren: 3 Current occupational status: unemployed Do you think of yourself as: Straight/Heterosexual Kinsey/Yazidism: None Data Anesthesia Cardiac Studies: Echocardiogram Ultrasound 02/14/19 Cardiac Event Monitor 05/25/20
[2022-09-27 07:16] LABS: OR HCG Qualitative Urine Negative (Negative)
--- NOTE | 2022-09-27 07:21 | W.PM.OPSUD ---
Surgery/Procedure H&P Update DATE OF PROCEDURE: September 27, 2022 DATE H&P PERFORMED: 09/25/22 H&P UPDATE INFORMATION: I have reviewed H&P completed within last 30 days, I have examined patient prior to procedure and No changes to prior documentation PLANNED PROCEDURE: Operation Date: 09/27/22 07:00 Proposed Procedures p Total Abdominal Hysterectomy with BSO 78170,R10.2,N85.8(Not Applicable) - Clemente Ortega MD
[2022-09-27 07:25] LABS: Basophils # 0.1 10^3/uL (0.0-0.1); Eosinophils # 0.2 10^3/uL (0.0-0.8); Eosinophils % 2.1 %; Hematocrit 38.1 % (36-47); Lymphocytes # 2.7 10^3/uL (0.8-4.8); Lymphocytes % 32.6 %; Mean Corpuscular HGB Conc 34.1 g/dL (30-55); Mean Corpuscular Hemoglobin 29.9 pg (27-33); Mean Corpuscular Volume 87.6 fl (85-98); Mean Platelet Volume 11.5 fL (7.4-10.4); Monocytes # 0.8 10^3/uL (0.2-0.9); Monocytes % 9.2 %; Neutrophils # 4.54 10^3/uL (1.8-7.7); Neutrophils % 54.9 %; Nucleated Red Blood Cells % 0 %; Platelet Count 228 10^3/cmm (157-399); Red Blood Count 4.35 10^6/uL (3.85-5.65); Red Cell Distribution Width 13.2 % (12.1-15.1); White Blood Count 8.26 10^3/uL (3.29-11.43)
[2022-09-27 08:15] LABS: Alanine Aminotransferase 30 U/L (0-33); Albumin Level 3.8 g/dL (3.5-5.2); Alkaline Phosphatase 63 U/L (35-105); Aspartate Amino Transferase 19 U/L (0-32); Blood Urea Nitrogen 14 mg/dL (6-20); Calcium 8.5 mg/dL (8.5-10.5); Carbon Dioxide 22 mmol/L (22-29); Chloride 106 mmol/L (98-107); Creatinine Clr Calc Pharmacy 171.2905; Globulin 1.8 g/dL (1.3-4.6); Glomerular Filtration Rate 133.4 mL/min (90-130); Glucose 201 mg/dL (65-115); Osmolality Calculated 288 mOsm/kg (285-295); Sodium 136 mmol/L (136-145); Total Bilirubin 0.2 mg/dL (0.15-1.2); Total Protein 5.6 g/dL (6.6-8.7)
[2022-09-27 08:16] LABS: Anion Gap 12.2 (5-19); Potassium 4.2 mmol/L (3.5-5.1)
[2022-09-27] MEDS: ceFOXitin 2,000 MG in sodium chloride 0.9% (plus) 50 ML 100 MG IV (08:22)
[2022-09-27] MEDS: sodium chloride 0.9% 100 mL Bag XX (09:09)
[2022-09-27] MEDS: BUPivacaine 0.5% INJ 30 mL INJECTION (09:09)
[2022-09-27] MEDS: BUPivacaine liposome 13.3 mg/mL SDV 10 mL 266 MG INFILTRATI (09:10)
--- NOTE | 2022-09-27 10:41 | P.OP_ITS ---
Operative Report Date of procedure: September 27, 2022 Pre-op diagnosis: Pelvic pain, hematometra, uterine mass Post-op diagnosis: Same as above Post-op findings: Enlarged uterus Procedure done: Total abdominal hysterectomy Specimens removed/disposition: Uterus Surgeon: Clemente Ortega MD Estimated blood loss (mL): 100 IV fluids (mL): 1,300 Urine output (mL): 100 Procedure: The patient was taken to the operating room, and after adequate level of general anesthesia was achieved, the patient was placed in the Trendelenburg position, prepped and draped in the usual sterile fashion. Subsequently, a Pfannenstiel incision was made and the incision was taken down to the fascia. The fascia was opened up sharply. The fascia was extended to the length of the incision using the Kang scissors. At this time, the rectus muscles were dissected from the fascia superiorly and inferiorly to the symphysis pubis. The midline rectus muscles were opened sharply and extended superiorly and inferiorly. The peritoneum was visualized, grasped, opened sharply, and extended superiorly and inferiorly towards the bladder. The abdominal contents were packed superiorly away from the operative site using the lap packs. At this time, the pelvic organs were noted. The inferior and superior blades were placed in place on the Josesito self-retaining retractor. Bowel was packed away from the operative site. The fundus of the uterus was then grasped with a triple-tooth tenaculum and retracted out of the pelvic cavity into the abdominal site. At this point, Ileana clamps were placed in both right and left adnexal regions. Subsequently, using the LigaSure cautery unit, the round ligaments were grasped, cauterized, and dissected. The bladder flap was then formed and the bladder flap was pushed away down anteriorly over the lower uterine segment, pushed away from the operative site on both the right and left sides. Subsequently, the posterior leaf of the broad ligament was opened sharply and the LigaSure instrument was then placed below the level of the ovary in both the right and left side, care being taken not to damage bowel or uterus and the infundibulopelvic ligament was then grasped, cauterized, and again dissected. Further dissection of the broad ligament was carried down posteriorly towards the uterine vessels. The bladder was pushed inferiorly down towards the vagina. Subsequently, the uterine vessels were then grasped again with the LigaSure machine, cauterized, and dissected. The cardinal ligaments were further grasped, dissected, and suture ligated, again with the LigaSure machine. At that point, the LigaSure machine instrument was stopped and straight Zeppelin clamps were used on the cardinal ligaments diana n towards the uterosacral ligaments. The cardinal ligaments were grasped, dissected with a scalpel and then ligated with transfixion sutures with #1 Vicryl suture down to the uterosacral ligaments. The uterosacral ligaments were grasped, dissected, and suture ligated again with #1 Vicryl suture and transfixion sutures. At that time, the bladder had been pushed over the vagina and at this time right-angle Zeppelin clamps were placed on the vagina at the level of the cervix, and using the Von scissors, the cervix was dissected away from the vagina. At this time, the vaginal cuff was then closed using interrupted sutures of #1 Vicryl suture from the midline to each lateral corner. After the good hemostasis had been achieved in the vaginal cuff, both the right and left adnexa was visualized and no more bleeding was noted. The cuff was intact with no bleeding noted. The bladder was visualized and no bleeding was noted. The Josesito self-retaining retractor was removed. The lap packs were removed, and at this time, general closure of the abdomen was carried out. The peritoneum was closed with a 2-0 Vicryl suture and continuous running suture. The fascia was closed using a #1 Vicryl suture from each corner to the midline. Exparel was infiltrated for pain management. No bleeding was noted. The subcutaneous tissue was then reapproximated using plain sutures and interrupted sutures, and the skin was closed using Insorb absorbable subcuticular dinah. The patient tolerated the procedure well and was transferred to the recovery room in excellent condition. The patient returned to the floor for recovery.
[2022-09-27] MEDS: albuterol 2.5 mg/3 mL Neb INHALATION (10:57)
[2022-09-27] MEDS: HYDROcodone-acetaminophen 5-325 mg Tablet PO ×3 (11:40→23:13)
[2022-09-27] MEDS: ketorolac 30 mg/mL INJ IVP ×2 (12:02→19:13)
[2022-09-27] MEDS: aspirin 81 mg EC Tablet PO (12:02)
[2022-09-27] MEDS: fentaNYL 50 mcg/mL INJ 2mL IVP ×4 (12:03→20:53)
--- NOTE | 2022-09-27 13:33 | ANE.PACU2 ---
Inpatient post-anesthesia follow up: Airway intact: Yes Vital signs: Temperature 97.4 F Pulse Rate 82 Respiratory Rate 18 Blood Pressure 138/76 Pulse Oximetry 95 Oxygen Delivery Me thod Nasal Cannula Oxygen Flow Rate 3 Fraction of Inspir ed Oxygen Hydration adequate: Yes Nausea and vomiting: No Pain level: 3 Mental status: Baseline
[2022-09-27] MEDS: dextrose 5%-lactated ringers 1,000 ML 125 ML IV (17:00)
[2022-09-27] MEDS: magnesium lactate 84 mg Tablet 252 MG PO (17:08)
[2022-09-27] MEDS: metformin 500 mg Tablet 1000 MG PO (17:09)
[2022-09-27] MEDS: docusate sodium 100 mg Capsule PO (17:10)
[2022-09-27] MEDS: simethicone 80 mg Chew PO (20:53)
[2022-09-27] MEDS: sertraline 100 mg Tablet 200 MG PO (20:56)
[2022-09-27] MEDS: hyDROXYzine 25 mg Capsule 100 MG PO (20:56)
[2022-09-28] MEDS: dextrose 5%-lactated ringers 1,000 ML 125 ML IV (02:51)
[2022-09-28] MEDS: ketorolac 30 mg/mL INJ IVP ×2 (02:51→06:48)
[2022-09-28 03:29] VITALS: RESP 18
[2022-09-28] MEDS: fentaNYL 50 mcg/mL INJ 2mL IVP ×2 (03:29→12:33)
[2022-09-28 05:00] VITALS: BP 120/71; PULSE 75; RESP 16; TEMP 36.4; O2SAT 96
[2022-09-28] MEDS: simethicone 80 mg Chew PO ×2 (05:30→12:33)
[2022-09-28 05:33] LABS: Glucose Point of Care 247 mg/dL (70-110)
[2022-09-28 06:02] LABS: Hematocrit 31.9 % (36-47); Mean Corpuscular HGB Conc 35.7 g/dL (30-55); Mean Corpuscular Hemoglobin 30.4 pg (27-33); Mean Corpuscular Volume 85.1 fl (85-98); Mean Platelet Volume 11.4 fL (7.4-10.4); Platelet Count 178 10^3/cmm (157-399); Red Blood Count 3.75 10^6/uL (3.85-5.65); Red Cell Distribution Width 12.9 % (12.1-15.1); White Blood Count 11.97 10^3/uL (3.29-11.43)
[2022-09-28] MEDS: HYDROcodone-acetaminophen 5-325 mg Tablet PO ×3 (06:48→19:00)
[2022-09-28 10:00] VITALS: BP 121/74; PULSE 81; RESP 15; TEMP 36.9; O2SAT 97
--- NOTE | 2022-09-28 12:30 | PM.PN ---
Subjective Subjective: Mrs. Clifton 47-year-old female is status post total abdominal hysterectomy postoperative day 1. Refers pain under control with medication Vitals/I&O/Wt Last Vital Signs Temp 98.4 F 09/28/22 10:00 Pulse 81 09/28/22 10:00 Resp 15 09/28/22 12:33 BP 121/74 09/28/22 10:00 Pulse Ox 97 09/28/22 10:00 O2 Del Method Room Air 09/28/22 10:00 O2 Flow Rate 2 09/27/22 14:30 09/28/22 09/28/22 09/28/22 06:59 14:59 22:59 Intake Total 1314.583 / 2164.583 Output Total 550 / 1175 265 / 265 Balance 764.583 / 989.583 -265 / -265 Weight last 48 hrs Weight 108.862 kg Physical Exam Narrative: GA: Alert and oriented ?3. HEENT: WNL. Heart: Regular rate and rhythm. Lungs: Clear to auscultation bilaterally. Abdomen: Bowel sounds present, nontender, minimal tenderness, incision clean and dry, no redness, pain or edema. EXPLOSIVES MIXER OPERATOR: No bleeding. Extremities: No edema, no cyanosis, no calves pain. Urinary Catheter Management: Baumann: Cath Placed During This Visit: yes, but has since been removed by the nurse Reason for Continuing Indwelling Catheter: Decision to DC Catheter Urinary Catheter Date of Insertion: 09/27/22 Urinary Catheter Time of Insertion: 09:00 Date Urinary Catheter Removed: 09/28/22 Time Urinary Catheter Discontinued: 05:30 Data 09/28/22 05:57 09/27/22 07:34 A&P Assessment and plan (1) Status post abdominal hysterectomy: Mrs. Clifton 47-year-old female is status post total abdominal hysterectomy postoperative day 1. She is afebrile and hemodynamically stable. Overnight observation uneventful. Tolerating diet well. Ambulating without difficulty. Refers having had bowel movement. Plan Continue postop observation. Plan discharge home tomorrow Attestations Medical Necessity Statement*: In my professional opinion poor admitting diagnosis Coding Level of Care Code Acute Code for Chg Fwd Diagnoses Status post abdominal hysterectomy Z90.710
[2022-09-28 12:33] VITALS: RESP 15
[2022-09-28] MEDS: ibuprofen 800 mg tablet PO ×2 (12:33→20:48)
[2022-09-28 16:00] VITALS: BP 127/70; PULSE 68; TEMP 37.2; O2SAT 98
[2022-09-28] MEDS: docusate sodium 100 mg Capsule PO (19:00)
[2022-09-28 22:00] VITALS: BP 135/83; PULSE 71; RESP 18; TEMP 36.6; O2SAT 98
[2022-09-29] MEDS: HYDROcodone-acetaminophen 5-325 mg Tablet PO ×2 (00:37→08:14)
[2022-09-29 04:00] VITALS: BP 107/63; PULSE 71; RESP 16; TEMP 36.6; O2SAT 98
--- NOTE | 2022-09-29 07:15 | PM.OBGYDC ---
Discharge Providers MELT HOUSE CENTRIFUGAL OPERATOR Date of Admission: 09/27/22 11:07 Date of Discharge: 09/29/22 Attending Provider at Admission: Clemente Ortega MD Attending Provider at Discharge: Clemente Ortega MD Primary Care Provider: Dank Benítez MD Diagnoses at Discharge Discharge Diagnosis (1) Status post abdominal hysterectomy: Status: Acute Reason for Visit Reason for Visit: Brief History: Mrs. Clifton 47-year-old female G3, P3 history of 3 previous and endometrial ablation. Came with acute pelvic pain and a CT scan and an ultrasound results at another institution showing a lower uterine mass. This was concerning since she had an ultrasound a year ago and no mass was present. A total abdominal hysterectomy was recommended due to uterine size and previous surgical history. Hospital Course Hospital Course Mrs. Clifton 47-year-old female G3, P3 was admitted for planned total abdominal hysterectomy. The total abdominal hysterectomy was performed without complications. and observation was uneventful. She is afebrile and hemodynamically stable postoperative day 2. She is tolerating diet well. Had a bowel movement. Urinating without difficulty. She was counseled regarding pelvic rest for 6 weeks (no sex, no tampons, no vaginal douches). Return to the emergency room if any fever, increased bleeding or pain. Physical Exam Narrative: GA: Alert and oriented ?3. HEENT: WNL. Heart: Regular rate and rhythm. Lungs: Clear to auscultation bilaterally. Abdomen: Bowel sounds present, nontender, minimal tenderness, incision clean and dry, no redness, pain or edema. SERVICES PROGRAM MANAGER: No bleeding. Extremities: No edema, no cyanosis, no calves pain. Urinary Catheter Management: Baumann: Cath Placed During This Visit: yes, but has since been removed by the nurse Reason for Continuing Indwelling Catheter: Decision to DC Catheter Urinary Catheter Date of Insertion: 09/27/22 Urinary Catheter Time of Insertion: 09:00 Date Urinary Catheter Removed: 09/28/22 Time Urinary Catheter Discontinued: 05:30 History History History 3 Term 3 0 Miscarriages/Ectopic 0 Living Children 3 Discharge Data Studies Completed and Pending Pending at discharge Category Date Time Status Pathology: Surgical [PTH] Routine Pth 09/27/22 10:33 Received Laboratory Results WBC 11.97 10^3/uL (3.29-11.43) H 09/28/22 05:57 RBC 3.75 10^6/uL (3.85-5.65) L 09/28/22 05:57 Hgb 11.40 g/dL (11.27-16.99) 09/28/22 05:57 Hct 31.9 % (36-47) L 09/28/22 05:57 MCV 85.1 fl (85-98) 09/28/22 05:57 MCH 30.4 pg (27-33) 09/28/22 05:57 MCHC 35.7 g/dL (30-55) 09/28/22 05:57 RDW 12.9 % (12.1-15.1) 09/28/22 05:57 Plt Count 178 10^3/cmm (157-399) 09/28/22 05:57 MPV 11.4 fL (7.4-10.4) H 09/28/22 05:57 Neut % (Auto) 54.9 % 09/27/22 06:35 Lymph % (Auto) 32.6 % 09/27/22 06:35 [place] % (Auto) 9.2 % 09/27/22 06:35 Eos % (Auto) 2.1 % 09/27/22 06:35 Baso % (Auto) 1.0 % 09/27/22 06:35 Neut # (Auto) 4.54 10^3/uL (1.8-7.7) 09/27/22 06:35 Lymph # (Auto) 2.7 10^3/uL (0.8-4.8) 09/27/22 06:35 [place] # (Auto) 0.8 10^3/uL (0.2-0.9) 09/27/22 06:35 Eos # (Auto) 0.2 10^3/uL (0.0-0.8) 09/27/22 06:35 Baso # (Auto) 0.1 10^3/uL (0.0-0.1) 09/27/22 06:35 Nucleated RBC % (auto) 0 % 09/27/22 06:35 Nucleated RBCs # 0.0 /100WBC 09/27/22 06:35 Sodium 136 mmol/L (136-145) 09/27/22 07:34 Potassium 4.2 mmol/L (3.5-5.1) 09/27/22 07:34 Chloride 106 mmol/L (98-107) 09/27/22 07:34 Carbon Dioxide 22 mmol/L (22-29) 09/27/22 07:34 Anion Gap 12.2 (5-19) 09/27/22 07:34 BUN 14 mg/dL (6-20) 09/27/22 07:34 Creatinine 0.5 mg/dL (0.5-0.9) 09/27/22 07:34 GFR Calculation 133.4 mL/min (90-130) H 09/27/22 07:34 Glucose 201 mg/dL (65-115) H 09/27/22 07:34 POC Glucose 247 mg/dL (70-110) H 09/27/22 06:38 Calculated Osmolality 288 mOsm/kg (285-295) 09/27/22 07:34 Calcium 8.5 mg/dL (8.5-10.5) 09/27/22 07:34 Total Bilirubin 0.2 mg/dL (0.15-1.2) 09/27/22 07:34 AST 19 U/L (0-32) 09/27/22 07:34 ALT 30 U/L (0-33) 09/27/22 07:34 Alkaline Phosphatase 63 U/L (35-105) 09/27/22 07:34 Total Protein 5.6 g/dL (6.6-8.7) L 09/27/22 07:34 Albumin 3.8 g/dL (3.5-5.2) 09/27/22 07:34 Globulin 1.8 g/dL (1.3-4.6) 09/27/22 07:34 Urine HCG, Qual Negative (Negative) 09/27/22 06:02 Blood Type O Negative 09/27/22 06:35 Rho(D) Type Negative 09/27/22 06:35 Antibody Screen Negative 09/27/22 06:35 Vitals Last Vital Signs Temp 97.9 F 09/29/22 04:00 Pulse 71 09/29/22 04:00 Resp 16 09/29/22 04:00 BP 107/63 09/29/22 04:00 Pulse Ox 98 09/29/22 04:00 O2 Del Method Room Air 09/29/22 04:00 O2 Flow Rate 2 09/27/22 14:30 Discharge Plan Discharge Patient Disposition: Home Condition: Stable Prescriptions: New hydrocodone-acetaminophen 5-325 mg tablet 1 tab PO Q4H PRN (Reason: pain) Qty: 30 0RF acetaminophen 325 mg capsule 325 mg PO Q4H PRN (Reason: fever or postoperative pain pain) Qty: 60 0RF ibuprofen 800 mg tablet 800 mg PO TID PRN (Reason: pain) Qty: 60 0RF Continued aspirin 81 mg tablet,delayed release (DR/EC) 81 mg PO ONCE Qty: 90 3RF Rx Instructions: 340 B medications magnesium L-lactate 84 mg tablet extended release 252 mg PO BID Qty: 540 3RF Rx Instructions: 340 B medications hydrocodone-acetaminophen 5-325 mg tablet 1 tab PO Q6H PRN (Reason: Pain) ondansetron HCl 4 mg tablet 4 mg PO Q6H hydrocodone-acetaminophen 5-325 mg tablet 1 tab PO Q4H PRN (Reason: pain) 10 Days Qty: 30 0RF (DME) blood-glucose meter [ActivNetworksTouch Ultra2 Meter] Misc See Rx Instructions .ROUTE .MEDSUPPLY Qty: 1 0RF Rx Instructions: As directed (DME) OneTouch Ultra Blue Test Strip Strip See Rx Instructions .ROUTE .MEDSUPPLY Qty: 100 0RF Rx Instructions: As directed, test blood sugar, once, daily. rosuvastatin [Crestor] 10 mg tablet 10 mg PO DAILY Qty: 90 0RF Rx Instructions: Must be seen for further refills. 2nd/Final notice albuterol sulfate 90 mcg/actuation HFA aerosol inhaler 2 puff inhalation Q6H PRN (Reason: shortness of breath or wheezing) Qty: 54 0RF Rx Instructions: 340 B medications niacin 750 mg tablet extended release 750 mg PO DAILY 90 Days Qty: 90 3RF Rx Instructions: 340 B medications amitriptyline 25 mg tablet 25 mg PO DAILY Qty: 90 3RF Rx Instructions: 340 B medications metformin 1,000 mg tablet 1,000 mg PO BID Qty: 180 3RF Rx Instructions: 340 B medications lisinopril 40 mg tablet 40 mg PO DAILY Qty: 90 3RF Rx Instructions: 340 B medications (DME) lancets [OneTouch Delica Lancets] 33 gauge misc See Rx Instructions .ROUTE .MEDSUPPLY Qty: 100 3RF Rx Instructions: As directed, test blood sugar, once, daily. glyburide 5 mg tablet 2.5 mg PO DAILY Qty: 90 3RF Rx Instructions: 340 B medications hydroxyzine HCl 50 mg tablet 100 mg PO BID PRN (Reason: anxiety/panic attacks) Qty: 120 5RF sertraline 100 mg tablet 200 mg PO DAILY 90 Days Qty: 180 1RF carvedilol phosphate 80 mg capsule, ER multiphase 24 hr 80 mg PO DAILY Qty: 90 3RF Rx Instructions: 340 B medications Discharge Orders: Discharge Order (Routine); Ordered 09/29/22 Ordered By: Clemente Ortega Referrals: Clemente Ortega MD [Physician] - 2 weeks Discharge Diet: Usual diet Discharge Activity: Limit activity as instructed Patient Instructions: Opioid Safety, Hysterectomy (GEN) Activity Restrictions/Additional Instructions: 1. Please call [facility] on next working day to make your post-operative appointment in 2 weeks. 2. Please stay home until you come back to the clinic on first post-hospatilization check up. 3. Please follow instructions on your medications CAREFULLY. 4. If you have abdominal incision, do not cover it unless dressing is necessary because of drainage. OK to shower, but avoid bath. Leave steri-strips until they fall off. If they are still on one week after surgery, you may remove them. 5. If you had vaginal surgery or vaginal repair, Dr. Ortega may instruct you to take SITZ bath. 6. Yellow, blood tinged odorous vaginal discharge is usually normal after hysterectomy or vaginal surgeries. 7. No SEXUAL INTERCOURSE, tampons, or douches until you are completely released from the post-operative care. 8. Avoid constipation by eating right and maybe using some Metamucil or Milk of Magnesia. 9. All prescription refills are given during the working hours. Please do no wait till it runs out. Call the clinic at [phone] before your medication runs out. The clinic will get in touch with your doctor to prescribe medications if necessary. 10. Please remain within 40 mile radius from our hospital because emergencies do happen now and then during the post-operative period. 11. If you have stairs at home, take one step at a time slowly and minimize the number of trips. It helps to stay in one floor for the next few days. No lifting except what you can lift by one hand until you are released from the post-operative care. 12. Driving is discouraged until you are well healed. It may be 3-4 weeks before you feel strong enough to drive. You should be able to turn and look through the rear window without pain and you should be able to push the brake pedal very hard without pain before you drive. No fast rules, but SAFETY should be your primary concern. DO NOT drive if you are on sedating medications such as narcotics. 13. Call the clinic (during working hours) to make urgent appointment or go to the Emergency room, if any of the following occurs: i. Vaginal bleeding becomes heavy, more than a period. ii. Incision becomes red and sore, or drains pus. iii. Your TEMPERATURE is over 100.4F or you have chill. iv. IV site becomes red and swollen (a little ``knot?? is usually OK) v. Persistent nausea and vomiting vi. Persistent constipation or diarrhea vii. Rash or allergic reaction to medications. Discharge Attestations MELT HOUSE CENTRIFUGAL OPERATOR Time Spent in Discharge Care*: greater than 30 min Coding Level of Care Code Acute Code for Chg Fwd Diagnoses Status post abdominal hysterectomy Z90.710
[2022-09-29] MEDS: docusate sodium 100 mg Capsule PO (08:14)
[2022-09-29] MEDS: ibuprofen 800 mg tablet PO (08:14)
[2022-09-29 08:16] VITALS: BP 109/70; PULSE 75; RESP 16; TEMP 36.9; O2SAT 98
[2022-09-29 08:35] VITALS: BP 109/70; PULSE 75; RESP 16; TEMP 36.9; O2SAT 98
== END 2022-09-29 08:35 | disposition home or self-care (01) | DRG 743 ==
LOC: OBGYN 11:09
PROVIDERS: Admitting Provider Obstetrics & Gynecology; PCP Family Medicine Adult Medicine; Visit Provider Obstetrics & Gynecology
PROC: 0UT90ZZ Resection of Uterus, Open Approach (ICD-10-PCS; CPT 58150; principal; 2022-09-27 07:00)
DX: N85.7 Hematometra (principal); R10.2 Pelvic and perineal pain; N85.8 Other specified noninflammatory disorders of uterus
CPT/HCPCS: 36415; 36416; 51702; 80053; 81025; 82962; 84703; 85025; 85027; 86850; 86900; 88307; C9290; J0131; J0330; J0694; J1100; J1170; J1200; J1650; J1885; J2250; J2405; J2704; J3010; J3490; J7030; J7040; J7121; J7613; Q9968

== ENCOUNTER → 2023-03-29 07:25 | Outpatient (BNVA) | payer BC, SELFPAY | PROVIDERS: PCP Family Medicine Adult Medicine | DX: E78.2 Mixed hyperlipidemia (principal); I10 Essential (primary) hypertension; E11.65 Type 2 diabetes mellitus with hyperglycemia; I35.1 Nonrheumatic aortic (valve) insufficiency; E66.01 Morbid (severe) obesity due to excess calories | CPT/HCPCS: 80053; 80061; 83036; 83721; 84443; 85025 ==

== ENCOUNTER → 2023-07-10 08:19 | Outpatient (BNVA) | payer BC, SELFPAY | PROVIDERS: PCP Family Medicine Adult Medicine; Visit Provider Family Medicine Adult Medicine | DX: E78.2 Mixed hyperlipidemia (principal); E11.69 Type 2 diabetes mellitus with other specified complication; E78.5 Hyperlipidemia, unspecified; I10 Essential (primary) hypertension; E11.65 Type 2 diabetes mellitus with hyperglycemia; K58.2 Mixed irritable bowel syndrome; Z79.899 Other long term (current) drug therapy | CPT/HCPCS: 80053; 80061; 83036; 85025 ==

== ENCOUNTER → 2024-04-01 09:48 | Outpatient (BNVA) | payer BC, SELFPAY | PROVIDERS: PCP Family Medicine; Visit Provider Family Medicine | DX: E11.65 Type 2 diabetes mellitus with hyperglycemia (principal); I10 Essential (primary) hypertension | CPT/HCPCS: 80053; 80061; 83036; 85025 ==

== ENCOUNTER 2024-04-28 14:47 | Outpatient (CLI) | payer BC, SELFPAY ==
--- NOTE | 2024-04-28 15:00 | USCV_ITS ---
Denise Clifton Age: 48 Gender: F : 1975 Exam Date: 04/28/2024 15:02 Ordering Phys: Devonte Grant MD Technologist: Exam Location: [facility] – [place] Indication: ao insuff BP: / HR: 91 Rhythm: Sinus Technical Quality: Adequate MEASUREMENTS (Male / Female) Normal Values 2D ECHO LV Diastolic Diameter PLAX 5.2 cm 4.2 - 5.9 / 3.9 - 5.3 cm IVS Diastolic Thickness 1.2 cm 0.6 - 1.0 / 0.6 - 0.9 cm IVS Systolic Thickness 1.7 cm LVPW Diastolic Thickness 1.3 cm 0.6 - 1.0 / 0.6 - 0.9 cm LVPW Systolic Thickness 2.0 cm LVOT Diameter 2.0 cm LV Ejection Fraction 2D Teich 65.1 % LV Ejection Fraction MOD 4C 61.7 % LV Ejection Fraction MOD 2C 59.5 % LV Ejection Fraction 2C AL 59.8 % LA Diameter 4.1 cm RA Systolic Volume 4C AL 41.1 ml RA Systolic Volume 4C MOD 37.7 ml Aorta at Sinotubular Diameter 3.0 cm M-MODE LA Ao Ratio MM 1.4 AV Cusp Separation MM 2.5 cm DOPPLER AV Peak Velocity 340.0 cm/s LVOT Peak Velocity 106.0 cm/s AV Area Cont Eq vti 3.0 cm squared AV Area Cont Eq pk 1.0 cm squared MV Peak Velocity 98.0 cm/s MV Area PHT 7.4 cm squared Mitral E to A Ratio 0.9 TV Peak Velocity 170.3 cm/s TR Peak Velocity 203.0 cm/s TR Peak Gradient 16.5 mmHg TV Peak E Velocity 85.0 cm/s PV Peak Velocity 82.0 cm/s FINDINGS Left Ventricle Left ventricle is normal in size. LV systolic function is normal with EF of 55-60%. No regional wall motion abnormalities are seen. Right Ventricle Normal in size and function Right Atrium Normal in size Left Atrium Normal in size Mitral Valve Structurally normal mitral valve. Trace mitral regurgitation. Aortic Valve Structurally normal aortic valve. No significant stenosis. Mild aortic regurgitation. Tricuspid Valve Insufficient TR jet to calculate RVSP Pulmonic Valve Not well visualized Pericardium Normal Aorta Normal in size IVC Not well visualized CONCLUSIONS LV systolic function is normal with EF of 55 to 60%. Trace mitral regurgitation. Mild aortic regurgitation. Compared to prior echocardiogram from 2019, no significant changes are seen Shaan Engle MD (Electronically Signed) Final Date: 01 May 2024 12:09 S
== END 2024-04-28 14:48 | disposition home or self-care (01) ==
LOC: RAD 14:49
PROVIDERS: PCP Family Medicine; Visit Provider Family Medicine
DX: I35.1 Nonrheumatic aortic (valve) insufficiency (principal)
CPT/HCPCS: 93306

== ENCOUNTER → 2024-05-27 15:15 | Outpatient (BNVA) | payer BC, SELFPAY | PROVIDERS: PCP Family Medicine; Visit Provider Internal Medicine Cardiovascular Disease | DX: R07.9 Chest pain, unspecified (principal) | CPT/HCPCS: 93005 ==

== ENCOUNTER → 2024-07-29 09:38 | Outpatient (BNVA) | payer BC, SELFPAY | PROVIDERS: PCP Family Medicine; Visit Provider Family Medicine | DX: M75.101 Unspecified rotator cuff tear or rupture of right shoulder, not specified as traumatic (principal) | CPT/HCPCS: 80053; 83036; 85025 ==

== ENCOUNTER → 2024-09-19 15:17 | Outpatient (BNVA) | payer BC, SELFPAY | PROVIDERS: PCP Family Medicine; Visit Provider Family Medicine | DX: M75.101 Unspecified rotator cuff tear or rupture of right shoulder, not specified as traumatic (principal) | CPT/HCPCS: 73030 ==

== ENCOUNTER 2024-10-06 06:30 | Outpatient (RCR) | payer BC, SELFPAY | END 2024-11-04 23:59 | disposition home or self-care (01) | LOC: SPT 06:30 | PROVIDERS: PCP Family Medicine; Visit Provider Nurse Practitioner | DX: M25.511 Pain in right shoulder (principal) | CPT/HCPCS: 97110; 97161; 97530 ==

== ENCOUNTER 2024-11-05 05:00 | Outpatient (RCR) | payer BC, SELFPAY | END 2024-12-05 23:59 | disposition home or self-care (01) | LOC: SPT 05:00 | PROVIDERS: PCP Family Medicine; Visit Provider Nurse Practitioner | DX: M25.511 Pain in right shoulder (principal) | CPT/HCPCS: 97110 ==

== ENCOUNTER 2024-12-06 05:00 | Outpatient (RCR) | payer BC, SELFPAY | END 2025-01-04 23:59 | disposition home or self-care (01) | LOC: SPT 05:00 | PROVIDERS: PCP Family Medicine; Visit Provider Nurse Practitioner | DX: M25.511 Pain in right shoulder (principal) | CPT/HCPCS: 97110 ==

== ENCOUNTER → 2025-01-19 14:22 | Outpatient (BNVA) | payer BC, SELFPAY | PROVIDERS: PCP Family Medicine; Visit Provider Family Medicine | DX: E11.65 Type 2 diabetes mellitus with hyperglycemia (principal) | CPT/HCPCS: 80053; 80061; 83036; 85025 ==